=== PATIENT | female | born 1960 | race Caucasian/White ===

== ENCOUNTER 2019-08-19 11:30 | Outpatient (REF) | payer OTHER, SELFPAY ==
--- NOTE | 2019-08-19 11:30 | PAPFT_PTH ---
PATIENT: Mala Wong LOC: [facility] U#:[id number] AGE/SX: 58/F ROOM: RE08/19/[address]: Araseli Kate V : 1960 BED: DIS: 08/19/2019 SPEC #: [id number] RECD: 08/20/19 12:52 STATUS: ELOY REQ #: [id number] LISA: 08/19/19 11:[address]: Araseli Kate V DEPT: [facility] Cytology RECD BY: Pat Salas Tissues: 1 - CX/ENDOCX FOR PAP SMEARS Procedures: PAP THIN PREP/UVM Screening Comments: [id number]
== END 2019-08-19 11:50 ==
LOC: NCHCN 11:30
PROVIDERS: PCP Family Medicine; Visit Provider Family Medicine
DX: Z12.4 Encounter for screening for malignant neoplasm of cervix (principal); Z01.419 Encounter for gynecological examination (general) (routine) without abnormal findings
CPT/HCPCS: 88142

== ENCOUNTER 2019-08-22 01:44 | Outpatient (CLI) | payer OTHER, SELFPAY ==
--- NOTE | 2019-08-22 09:00 | DI.US_ITS ---
EXAM: US ABD PELV TRANSVAG NON-OB CLINICAL HISTORY: ABD PAIN, R10.9, AND LOW PELVIC PAIN,UTERINE PROLAPSE, N81.4 TECHNIQUE: Ultrasound performed using standard protocol. FINDINGS: Abdomen ultrasound: Liver is normal in size and echogenicity. No focal liver lesions or biliary dila tation is seen. The gallbladder is unremarkable, without evidence of stones or wall thickening. The pancreas, spleen, kidneys and aorta are unremarkable. There is no ascites. Pelvic ultrasound: Transabdominal and transvaginal exams were performed. The uterus measures 6.9 x 2 .8 x 4.4 cm. The endometrial stripe measures 3 millimeters in thickness. An 11 millimeter posterior myometrial fibroid is seen. The ovaries are normal in size. There is somewhat limited visualizatio n of the left ovary due to adjacent bowel gas. No free fluid is seen in the cul-de-sac. IMPRESSION: Negative abdomen ultrasound. 11 millimeter fibroid. No acute abnormality.
== END 2019-08-22 02:04 ==
PROVIDERS: PCP Family Medicine; Visit Provider Family Medicine
DX: R10.9 Unspecified abdominal pain (principal); R10.2 Pelvic and perineal pain; D25.9 Leiomyoma of uterus, unspecified; N81.4 Uterovaginal prolapse, unspecified
CPT/HCPCS: 76700; 76830; 76856

== ENCOUNTER 2019-09-19 13:50 | Outpatient (CLI) | payer OTHER, SELFPAY ==
[2019-09-19 15:02] LABS: HGB 14.2 g/dL (12.0-15.5); Mean Corp. HGB Concentration 34.6 g/dL (32.0-36.0); Mean Corpuscular Hemoglobin 32.6 pg (27.0-33.0); Mean Platelet Volume 9.8 fL (8.0-11.0); Platelet Count 278 x1000/uL (130-400); RBC 4.36 m/cumm (4.00-5.20); RBC Distribution Width 12.8 % (11.7-14.6); White Blood Cell Count 7.27 k/cumm (4.4-10.8)
== END 2019-09-19 14:10 ==
PROVIDERS: PCP Family Medicine; Visit Provider Obstetrics & Gynecology
DX: N81.4 Uterovaginal prolapse, unspecified (principal); Z01.818 Encounter for other preprocedural examination; Z01.812 Encounter for preprocedural laboratory examination
CPT/HCPCS: 36415; 85027; 86850; 86900; 86901

== ENCOUNTER 2019-09-24 08:08 | Inpatient (IN) | payer OTHER, SELFPAY ==
[2019-09-24] VITALS (16 sets, daily range): BP systolic 88–121; BP diastolic 43–72; PULSE 54–87; RESP 16–20; TEMP 36.6–36.8; O2SAT 94–99
[2019-09-24] MEDS: Lactated Ringers 1,000 ML 125 ML IV ×4 (08:52→19:44)
[2019-09-24] MEDS: ceFAZolin 2 GM/50 ML BAG IVPB (12:20)
--- NOTE | 2019-09-24 13:12 | UTER_PTH ---
PATIENT: Mala Wong LOC: [facility]BS U#:[id number] AGE/SX: 58/F ROOM: OBS.306 RE09/24/[address]: Sander Mustafa MD : 1960 BED: A DIS: 09/26/2019 SPEC #: [id number] RECD: 09/24/19 18:39 STATUS: ELOY REQ #: [id number] LISA: 09/24/19 13:[address]: Sander Mustafa DEPT: Surgical Specimen RECD BY: Pat Salas ENTERED: 09/24/19 18:42 SP TYPE: UTER OTHR DR: Araseli Kate V Tissues: 1 - UTERUS W OR W/O OVARIES(NOT TUMOR/PROLAPSE) 2 - OVARY NOT TUMOR W OR W/O TUBES 3 - OVARY NOT TUMOR W OR W/O TUBES Procedures: GROSS AND MICRO LEVEL 4 Comments: [id number]
[2019-09-24] MEDS: Bupivacaine 0.25% Pres-Free 30 ML VIAL (14:25)
[2019-09-24] MEDS: Normal Saline 20 ML VIAL (15:02)
[2019-09-24] MEDS: Vasopressin 20 UNITS/ML VIAL (15:02)
--- NOTE | 2019-09-24 18:49 | W.PM.OP ---
Date of service: 09/24/19 Time of Service: 18:50 Operative Note Operative Note DATE OF PROCEDURE: 09/24/19 PRE-OP DIAGNOSIS: Cystocele/rectocele/uterine prolapse POST-OP DIAGNOSIS: same PROCEDURE: 1. TVH converted to LAVH 2. Bilateral salpingo-oophorectomy 3. Anterior colporrhaphy 4. Cystoscopy. SURGEON: Sander Mustafa ASSISTING SURGEON: Kristen Rivera ANESTHESIA: GETA ESTIMATED BLOOD LOSS: 150 PATHOLOGY: other (1. Uterus, tubes and ovaries) COMPLICATIONS: None Patient was transported to: PACU Patient's condition: stable Findings: 1. Grade II Cystocele 2. Uterine prolapse to within 1 cm of introitus. 3. Grade I rectocele Procedure Description: The patient was taken to the operating room and after an adequate level of general anesthesia was obtained the patient was placed in lithotomy position. The patient was prepped and draped in the usual sterile manner. A Abreu catheter was placed in the bladder draining clear urine. A weighted speculum was placed in the vagina. The cervix was well visualized. The cervix was grasped with a single-tooth tenaculum. The paracervical tissues were infiltrated with vasopressin (20 units in 60 cc saline) solution. A circumferential incision was made with a #10 blade scalpel at the cervicovaginal junction. The anterior and posterior planes were developed. The cul-de-sac was entered sharply with Temple scissors. A longbilled weighted speculum was inserted retracting the rectum posteriorly. Dissection was carried anteriorly until the anterior cul-de-sac was entered. The bladder was reflected anteriorly with a right ankle retractor. The uterosacral ligaments were crossclamped bilaterally with Zeppelin clamps. These were transected with Temple scissors and suture ligated in a Lester stitch with 0 Vicryl. Suture tags were held. Two additional pedicles and either side were used to transect and ligate the uterine vessels. Dissection was carried across the utero-ovarian ligaments bilaterally as well. The utero-ovarian ligaments were transected and suture-ligated with 0 Vicryl in a Solitario stitch. The uterus was removed from the abdomen. Excellent hemostasis was noted. The right ovary was identified, was grasped with a [place] clamp in the infundibular pelvic ligament was crossclamped with Zeppelin clamp, transected with Temple scissors and suture ligated with 0 Vicryl in a Solitario stitch. The left tube and ovary were somewhat difficult to access. There was some adhesion on the left side but was able to be grasped with a [place] clamp. The IP ligament was crossclamped with a Zeppelin clamp. The ovary and tube were excised with Temple scissors and the pedicle was suture-ligated with 0 Vicryl Solitario stitch. It was at this point that there was some bleeding noted from the region of the left adnexa. The actual site of bleeding could not be identified and vaginal access was significantly limited. The bleeding was not heavy but significant. The decision was made to close the vaginal cuff and perform a laparoscopy to identify the site of bleeding. The purpose of this procedure the median of the vaginal cuff was closed with interrupted vertical mattress sutures of 0 Vicryl. The uterosacral ligaments were not incorporated yet. Suture tags were held in the vagina was packed with a moist laparotomy sponge. The patient was repositioned. The abdomen was prepped and the patient was redraped. Surgical staff was also regowned and gloved. Attention was then turned to the abdominal portion of this procedure. The skin and subcutaneous tissues at the umbilicus were infiltrated with 0.25% Marcaine solution. A small infraumbilical skin incision was then made with a #15 blade scalpel. Sharp dissection was carried down to the underlying layer fascia. The fascia was grasped and elevated with 2 Natanael clamps and incised sharply with a scalpel. The peritoneum was entered with a hemostat. 2 sutures of 0 Vicryl were used to tag the fascia. A 10 mm balloon trocar was advanced and secured in place. A pneumoperitoneum to approximately 14 mmHg was established. Two 5 mm ports were placed in the right and left lower quadrant under direct visualization. There was some bleeding noted at the site of the left adnexa. Bleeding was not heavy. Due to some difficulty in accessing the site, a fourth 5 mm port was placed in the right upper quadrant also under direct visualization. The site of bleeding appeared to be adjacent to the infundibulopelvic ligament and appeared to be a sign of an adhesion associated with the left tube and ovary. This was cauterized with a LigaSure device. With irrigation was performed and hemostasis was noted. All visualized bowel was noted to be normal in appearance. The vaginal cuff was noted to be to be hemostatic. All other pedicles were also noted to be hemostatic. The abdomen was desufflated and attention was then turned again to the vaginal portion of this procedure. The patient was repositioned. The weighted speculum was replaced. The suture tags from the uterosacral ligaments were incorporated into the vaginal angles with use of a free needle. Vaginal cuff closure was completed with interrupted vertical mattress sutures of 0 Vicryl. Attention was turned to performing the anterior colporrhaphy. The vaginal mucosa overlying the bladder was infiltrated with vasopressin solution. A linear incision was made overlying the bladder. The vaginal mucosa was dissected off the underlying defect and dissection was carried laterally until the defect could be suitably reduced. The defect was reduced with interrupted sutures of 0 Vicryl. The vaginal mucosa was trimmed and reapproximated with interrupted sutures of 0 Vicryl. Excellent hemostasis was noted. The weighted speculum was removed. With adequate suspension of the vaginal vault and hysterectomy the rectocele defect did not appear as prominent and the decision was made to not proceed with posterior colporrhaphy. 5 mL's of indigocarmine was injected intravenously. A 5 mm 30 degree cystoscope with normal saline distention media was advanced into the bladder. There is strong reflux of indigocarmine from the left UO but the right UO did not show reflux. After approximately 20 minutes of wait time, 5 mL's of indigocarmine was readministered followed by 10 mg of IV Lasix. Strong reflux of indigocarmine was noted from the right UO as well. The bladder wall was noted to be intact as well. The vaginal portion of this procedure was concluded. Attention was then returned to the patient's abdomen. The surgeon was regloved. The fascia at the umbilicus was closed with 2 previously placed sutures of 0 Vicryl. Each skin incision was closed with interrupted sutures of 4-0 Monocryl and Dermabond was applied. The procedure was concluded at this point. Sponge, lap and needle counts were correct at the conclusion of the procedure and the patient was transferred to PACU in stable condition.
[2019-09-24] MEDS: guaiFENesin 600 MG TABCR PO (19:43)
[2019-09-25] MEDS: oxyCODONE 5 MG TAB PO ×4 (00:26→18:55)
[2019-09-25] MEDS: Ibuprofen 600 MG TAB PO ×3 (00:26→18:53)
[2019-09-25] MEDS: Acetaminophen 325 MG TAB PO ×4 (00:26→18:53)
[2019-09-25 00:34] VITALS: BP 104/64; PULSE 71; RESP 18; TEMP 36.8
[2019-09-25 05:08] VITALS: BP 96/55; PULSE 59; RESP 18; TEMP 36.9
--- NOTE | 2019-09-25 06:10 | NUR.NOTE ---
Addendum entered by Mely Marx 09/25/19 06:13: Original Note: Nursing Note: awake complaining of perineal pain md notified new orders recieved tylenol motrin and oxycodone po given with some relief
[2019-09-25 07:45] VITALS: BP 116/74; PULSE 65; RESP 24; TEMP 36.8; O2SAT 95
[2019-09-25] MEDS: guaiFENesin 600 MG TABCR PO ×2 (08:09→19:52)
[2019-09-25 12:55] VITALS: BP 141/96; PULSE 67; RESP 20; TEMP 36.4; O2SAT 99
[2019-09-25] MEDS: Normal Saline Flush 10 ML SYR IV ×2 (12:58→14:50)
[2019-09-25] MEDS: Ondansetron 4 MG/2 ML VIAL IVP (14:50)
[2019-09-25 15:23] LABS: Abs Immature Grans 0.02 k/cumm (0.0-0.09); Absolute Basophil Count 0.03 k/cumm (0.0-0.2); Absolute Eosinophil Count 0.11 k/cumm (0.0-0.7); Absolute Lymphocyte Count 2.46 k/cumm (1.2-3.4); Absolute Monocyte Count 0.64 k/cumm (0.11-0.7); Absolute Neutrophil Count 5.77 k/cumm (1.2-6.7); Basophils % 0.3; Eosinophils % 1.2; HCT 35.3 % (36.0-46.0); HGB 11.9 g/dL (12.0-15.5); Immature Grans % 0.2; Lymphocytes % 27.2; Mean Corp. HGB Concentration 33.7 g/dL (32.0-36.0); Mean Corpuscular Hemoglobin 32.4 pg (27.0-33.0); Mean Corpuscular Volume 96.2 fL (80-95); Mean Platelet Volume 9.7 fL (8.0-11.0); Monocytes % 7.1; Platelet Count 220 x1000/uL (130-400); RBC 3.67 m/cumm (4.00-5.20); RBC Distribution Width 12.7 % (11.7-14.6); White Blood Cell Count 9.03 k/cumm (4.4-10.8)
[2019-09-25 15:27] LABS: Anion Gap 6.3 mmol/L (3-11); BUN 15 mg/dL (7-18); CO2 27.7 mmol/L (21.0-32.0); CREATININE 1.05 mg/dL (0.55-1.02); Calcium 8.2 mg/dL (8.5-10.1); Chloride 93 mmol/L (98-107); Estimated GFR 54.02 (mL/min/1.73m2); Glucose 101 mg/dL (74-106); Sodium 127 mmol/L (136-145)
[2019-09-25 15:41] VITALS: BP 105/63; PULSE 79; RESP 18; TEMP 36.8; O2SAT 95
--- NOTE | 2019-09-25 17:11 | W.PM.PROGNOT ---
Date of Service Date of service: 09/25/19 Time of Service: 17:11 Assessment and Plan Assessment and plan (1) Cystocele with uterine prolapse: Status: Acute Assessment and plan: Poor urine output and inability to to void today. A Ruiz catheter was replaced. We will keep the patient an additional night and plan for voiding trial tomorrow morning. She did have a slight elevation of her creatinine to 1.05. We will repeat her labs in the morning. Hemoglobin is stable at 11.9. Subjective Subjective Interval history since last seen: Patient reported low back pain today. This seems to be musculoskeletal. She did have low urine output through the day today. A bladder scan demonstrated a residual of approximately 150 mL's. Despite fluid bolus she did not urinate. A Ruiz catheter was placed yielding approximately 300 mls of urine. Her pain is well controlled but she does report a significant amount of pelvic pressure. Objective Objective Clinical Data: Abnormal lab results 09/25/19 09/25/19 Range/Units 15:11 15:11 RBC 3.67 L (4.00-5.20) m/cumm Hgb 11.9 L (12.0-15.5) g/dL Hct 35.3 L (36.0-46.0) % MCV 96.2 H (80-95) fL Sodium 127 L (136-145) mmol/L Chloride 93 L (98-107) mmol/L Creatinine 1.05 H (0.55-1.02) mg/dL Calcium 8.2 L (8.5-10.1) mg/dL Vital Signs Temperature 98.2 F 09/25/19 15:41 Temperature Source Oral 09/25/19 15:41 Pulse 79 09/25/19 15:41 Pulse Rhythm Regular 09/25/19 15:42 Respiratory Rate 18 09/25/19 15:41 Respiratory Effort 09/25/19 15:42 Respiratory Depth Normal 09/25/19 15:42 Respiratory Pattern Normal 09/25/19 15:42 Blood Pressure 105/63 09/25/19 15:41 Pulse Oximetry 95 09/25/19 15:41 Respiratory End-tidal CO2 26 09/24/19 16:22 Oxygen Delivery Method Room Air 09/25/19 15:41 Oxygen Flow Rate 0 09/25/19 15:41 Pain Level 0 09/25/19 15:41 Comment 09/24/19 17:00 Intake & Output 09/24/19 09/25/19 09/25/19 23:59 11:59 23:59 Intake Total 4080.833 / 4080.833 1358 / 3713 2355 / 3713 Output Total 425 / 425 600 / 825 225 / 825 Balance 3655.833 / 3655.833 758 / 2888 2130 / 2888 Intake: IV 3020.833 / 3020.833 838 / 2253 1415 / 2253 Oral 1060 / 1060 520 / 1460 940 / 1460 Output: Urine 275 / 275 600 / 825 225 / 825 Estimated Blood Loss 150 / 150 Other: Urine Color Indigo Yellow Dark Zeinab Urine Appearance Clear Clear Clear Urine Odor None Normal Comment ruiz cath intact encouraged patient to try to void, turn water on, try to relax avg 136 114, 143, 153 Emesis Description None Laboratory Results WBC 9.03 k/cumm (4.4-10.8) 09/25/19 15:11 RBC 3.67 m/cumm (4.00-5.20) L 09/25/19 15:11 Hgb 11.9 g/dL (12.0-15.5) L 09/25/19 15:11 Hct 35.3 % (36.0-46.0) L 09/25/19 15:11 MCV 96.2 fL (80-95) H 09/25/19 15:11 MCH 32.4 pg (27.0-33.0) 09/25/19 15:11 MCHC 33.7 g/dL (32.0-36.0) 09/25/19 15:11 RDW 12.7 % (11.7-14.6) 09/25/19 15:11 Plt Count 220 x1000/uL (130-400) 09/25/19 15:11 MPV 9.7 fL (8.0-11.0) 09/25/19 15:11 Immature Gran % 0.2 09/25/19 15:11 Neutrophils % 64.0 09/25/19 15:11 Lymphocytes % 27.2 09/25/19 15:11 Monocytes % 7.1 09/25/19 15:11 Eosinophils % 1.2 09/25/19 15:11 Basophils % 0.3 09/25/19 15:11 Absolute Neutrophils 5.77 k/cumm (1.2-6.7) 09/25/19 15:11 Absolute Lymphocytes 2.46 k/cumm (1.2-3.4) 09/25/19 15:11 Absolute Monocytes 0.64 k/cumm (0.11-0.7) 09/25/19 15:11 Absolute Eosinophils 0.11 k/cumm (0.0-0.7) 09/25/19 15:11 Absolute Basophils 0.03 k/cumm (0.0-0.2) 09/25/19 15:11 Sodium 127 mmol/L (136-145) L 09/25/19 15:11 Potassium 4.0 mmol/L (3.5-5.1) 09/25/19 15:11 Chloride 93 mmol/L (98-107) L 09/25/19 15:11 Carbon Dioxide 27.7 mmol/L (21.0-32.0) 09/25/19 15:11 Anion Gap 6.3 mmol/L (3-11) 09/25/19 15:11 BUN 15 mg/dL (7-18) 09/25/19 15:11 Creatinine 1.05 mg/dL (0.55-1.02) H 09/25/19 15:11 Estimated GFR/1.73 m2 54.02 (mL/min/1.73m2) 09/25/19 15:11 Glucose 101 mg/dL (74-106) 09/25/19 15:11 Calcium 8.2 mg/dL (8.5-10.1) L 09/25/19 15:11
[2019-09-25 20:06] VITALS: BP 107/66; PULSE 62; RESP 18; TEMP 36.7; O2SAT 95
[2019-09-25] MEDS: Zolpidem 5 MG TAB 10 MG PO (21:55)
[2019-09-26] VITALS: BP 105/67; PULSE 79; RESP 18; TEMP 36.6; O2SAT 95
[2019-09-26] MEDS: Ibuprofen 600 MG TAB PO (02:36)
[2019-09-26] MEDS: Acetaminophen 325 MG TAB PO ×2 (02:36→08:05)
[2019-09-26] MEDS: oxyCODONE 5 MG TAB PO ×2 (02:38→08:05)
[2019-09-26 06:00] LABS: Anion Gap 7.4 mmol/L (3-11); BUN 12 mg/dL (7-18); CO2 27.6 mmol/L (21.0-32.0); CREATININE 0.82 mg/dL (0.55-1.02); Calcium 8.1 mg/dL (8.5-10.1); Chloride 100 mmol/L (98-107); Glucose 94 mg/dL (74-106); Sodium 135 mmol/L (136-145)
[2019-09-26 07:30] VITALS: BP 102/64; PULSE 60; RESP 16; TEMP 36.6; O2SAT 94
[2019-09-26] MEDS: guaiFENesin 600 MG TABCR PO (08:06)
== END 2019-09-26 11:25 | disposition home or self-care (01) | DRG 742 ==
LOC: PDS 18:58 → OBS 09-25 05:23
PROVIDERS: Admitting Provider Obstetrics & Gynecology; PCP Family Medicine; Visit Provider Obstetrics & Gynecology
PROC: 0UT97ZZ Resection of Uterus, Via Natural or Artificial Opening (ICD-10-PCS; CPT 58260; principal; 2019-09-24 10:00)
PROC: 0UT97ZZ Resection of Uterus, Via Natural or Artificial Opening (ICD-10-PCS; CPT 57260; 2019-09-24 10:00)
DX: N81.2 Incomplete uterovaginal prolapse (principal); N99.61 Intraoperative hemorrhage and hematoma of a genitourinary system organ or structure complicating a genitourinary system procedure; D25.1 Intramural leiomyoma of uterus; D25.2 Subserosal leiomyoma of uterus; N80.0 Endometriosis of uterus; N84.0 Polyp of corpus uteri; F17.210 Nicotine dependence, cigarettes, uncomplicated; Y83.6 Removal of other organ (partial) (total) as the cause of abnormal reaction of the patient, or of later complication, without mention of misadventure at the time of the procedure
CPT/HCPCS: 58262; 49320; 57260; 52000; 36415; 80048; 88305; 99233; 85025; 88307; J0131; J0690; J1100; J2405; J3010

== ENCOUNTER 2023-08-14 19:57 | Outpatient (REF) | payer BC, SELFPAY ==
[2023-08-14 19:37] LABS: Anion Gap 8.5 mmol/L (3-11); BUN 13 mg/dL (7-18); CO2 28.5 mmol/L (21.0-32.0); CREATININE 0.8 mg/dL (0.55-1.02); Calcium 9.6 mg/dL (8.5-10.1); Chloride 96 mmol/L (98-107); Estimated GFR 83.78 (mL/min/1.73m2); Glucose 97 mg/dL (74-106); Sodium 133 mmol/L (136-145)
== END 2023-08-14 19:58 | disposition home or self-care (01) ==
LOC: NCHCN 19:57
PROVIDERS: PCP Family Medicine; Visit Provider Family Medicine
DX: I10 Essential (primary) hypertension (principal); E83.51 Hypocalcemia; Z00.00 Encounter for general adult medical examination without abnormal findings
CPT/HCPCS: 80048

== ENCOUNTER 2024-01-12 19:39 | Emergency (ER) | payer OTHER, SELFPAY ==
--- NOTE | 2024-01-12 19:45 | DI.RAD_ITS ---
Exam(s) XR WRIST RT COMPLETE EXAM: XR WRIST RT COMPLETE CLINICAL HISTORY: foosh, distal radius pain. TECHNIQUE: 2D digital imaging was performed of the right wrist. Three views were obtained. PA, lat eral and oblique views were obtained. COMPARISON: No exams were available for comparison FINDINGS: BONES: There is an acute comminuted intra-articular fracture of the distal right radius. The fractur e is impacted with mild dorsal angulation. There is an acute displaced ulnar styloid process fractur e. No bony destructive lesion is seen. JOINTS: On the lateral view, there is a question of displacement of the pisiform. SOFT TISSUE: Normal. IMPRESSION: 1. Acute fractures involving the distal radius and ulna as described above. 2. Question of displacement of the pisiform on the lateral view. Please correlate clinically. DATA REPOSITORY: RADIATION DOSE DELIVERED:
--- NOTE | 2024-01-12 19:45 | DI.RAD_ITS ---
Exam(s) XR ELBOW RT COMPLETE EXAM: XR ELBOW RT COMPLETE CLINICAL HISTORY: fall, pain at elbow. TECHNIQUE: 2D digital imaging was performed of the left elbow. Three images were obtained. AP, lat eral and oblique views were obtained. COMPARISON: No exams were available for comparison FINDINGS: BONES: No acute fracture is present. No bony destructive lesion is seen. JOINTS: The elbow is normally aligned. No joint effusion is seen. SOFT TISSUE: Normal. IMPRESSION: Unremarkable radiographs of the right elbow. DATA REPOSITORY: RADIATION DOSE DELIVERED:
[2024-01-12 19:50] VITALS: PULSE 87; RESP 16; TEMP 36.4; O2SAT 98
--- NOTE | 2024-01-12 19:52 | ED.GENADUL_ITS ---
Discharge Plan Disposition Patient Disposition: Home Condition: Good Discharge Details Clinical Impression: Contusion, Fall, Closed fracture of right distal radius Primary Care Provider: Araseli Kate V ED Provider: Eladio Marshall Home Meds and New Rx's Prescriptions: No Action lisinopril-hydrochlorothiazide 20-25 mg Tablet 1 tab PO DAILY pantoprazole 40 mg tablet,delayed release (DR/EC) 40 mg PO DAILY Discharge Instructions Instructions: Wrist Fracture in Adults (ED), Contusion in Adults (ED) Additional Instructions: At this time the CT scan of your head shows no evidence of bleed or fracture. Your elbow shows no signs of fracture on the x-ray. Unfortunately you do have a notable fracture in your distal radius in your wrist. You have been splinted. Unfortunately due to the nature of the injury there may need to be potential surgical intervention, however this will have to be determined after the swelling improves on reassessment. Please follow-up closely with the powered bridge specialist. Please take Tylenol Motrin as needed for pain. Please monitor closely for any signs of color change or worsening pain. If it feels like your wrist is in a vice manager compliance, you can slightly loosen up your splint. If you notice any worsening of your symptoms, or any new symptoms such as vomiting, diarrhea, fever, chills, shortness of breath, chest pain, numbness, weakness, or fainting , please return immediately to the emergency department for reevaluation. Please follow up with your primary care provider as soon as possible for reassessment and reevaluation. As always, it was a pleasure participating in your medical care today. Referrals: Araseli Kate MD [Primary Care Provider] - Elia Haywood MD [ [facility] STAFF PHYSICIAN] - Artemio Cross MD [ [facility] STAFF PHYSICIAN] - [facility] General Date/Time Provider Initiated Documentation: 01/12/24 19:41 . [facility] Narrative: 63-year-old female with a past medical history of hypertension, GERD, who presents today after fall. Patient was at work when she tripped on an elevated component of the lyric, she fell and with an outstretched wrist landed on her right dominant wrist, and hit her left head and right knee. She had no loss of consciousness. She recalls the entire event. She came to the ER immediately thereafter. She denies numbness or tingling. She has notable pain in her wrist made worse with movement. Minimal achiness in her left head where she was hit. No pain in her knee. No other complaints at this time. She is not on blood thinners. Related Data Home Medications Medication Instructions Recorded Confirmed lisinopril 20 1 tab PO DAILY 09/19/19 01/12/24 mg-hydrochlorothiazide 25 mg tablet pantoprazole 40 mg tablet,delayed 40 mg PO DAILY 01/12/24 01/12/24 release Allergies Allergy/AdvReac Type Severity Reaction Status Date / Time formaldehyde Allergy Severe Headache Verified 01/12/24 19:49 Isothiazolinones Allergy Severe Headache Verified 01/12/24 19:49 General Stated Complaint: Orthopedic KAIA: 3 Review of Systems All systems reviewed & are unremarkable except as noted in HPI and below Exam Narrative Exam Narrative: 1.Const: Well-nourished, Well-developed, appearing stated age 2.Eyes: PERRL, no conjunctival injection, and symmetrical lids. 3.ENT: Atraumatic external nose and ears. Moist MM. Neck: Symmetric, trachea midline, No thyromegaly. There is no evidence of raccoon eyes, oswald sign, CSF rhinorrhea, mastoid tenderness, cranial crepitus, hemotympanum, exophthalmos, or hyphema. Patient demonstrates intact dentition with no signs of tooth avulsion or fracture, no signs of jaw deformity, no evidence of a LeFort's fracture, with an intact palate, nose and orbital region. There is no evidence of a nasal septal hematoma. No proptosis. Jaw closes symmetrically. Airway is clear. Mild hematoma over the left temporal region. 4.CVS: +S1/S2, No murmurs or gallops. Peripheral pulses 2+ and equal in all extremities. Brisk capillary refill in all extremities. 5.RESP: Unlabored respiratory effort. Clear to auscultation bilaterally. No wheezes rales or rhonchi 6.GI: Soft, Nontender/Nondistended, No hepatosplenomegaly. No guarding or rebound. 7.MSK: Right wrist: Right wrist demonstrates mild deformity at the distal radius, swelling and tenderness there. There is also mild swelling and tenderness over the proximal radius. No tenderness over the olecranon. Normal movement of the elbow and shoulder otherwise. Symmetrically palpable radial and ulnar pulses. Capillary refill less than 2 seconds to all digits. Intact sensation to light touch of the radial, median and ulnar nerves demonstrated by testing in the dorsal web space of the thumb, the distal palmar aspect of the index finger, and the lateral surface of the fifth finger. 2 point discrimination intact to 5mm (up to 6mm can be normal in digits 3-5) of discrimination in the affected digit. Intact motor function of the radial, median and ulnar nerves demonstrated by strength of extension of the isolated distal joint of the index finger, hand manager compliance, and spreading of the 2nd through 5th digits. Intact recurrent median nerve as demonstrated by ability to move thumb fully through opposition, abduction and flexion. No snuffbox tenderness. Right knee demonstrates stability with varus and valgus straining, mild abrasion over the patella. No tenderness over the patella tibia or fibula. No midline cervical thoracic or lumbar spine tenderness. 8.Skin: Warm, Dry. No rashes or lesions. 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 Sensation grossly intact, no focal neurologic deficits. 10.Psych: (AAO) x3. Appropriate mood and affect Course Vital Signs Vital signs: Vital Signs Temperature 36.4 C L 01/12/24 19:50 Pulse 87 01/12/24 19:50 Respiratory Rate 16 01/12/24 19:50 Pulse Oximetry 98 01/12/24 19:50 Temperature 36.4 C L 01/12/24 19:50 Temperature Source Temporal Artery Scan 01/12/24 19:50 Pulse 87 01/12/24 19:50 Respiratory Rate 16 01/12/24 19:50 Blood Pressure Position Sitting 01/12/24 19:50 Pulse Oximetry 98 01/12/24 19:50 Oxygen Delivery Method Room Air 01/12/24 19:50 Oxygen Flow Rate 0 01/12/24 19:50 Pain Level 10 01/12/24 19:50 Medical Decision Making 63-year-old female with a past medical history of hypertension, GERD, who presents today after fall. Patient was at work when she tripped on an elevated component of the lyric, she fell and with an outstretched wrist landed on her right dominant wrist, and hit her left head and right knee. She had no loss of consciousness. She recalls the entire event. She came to the ER immediately thereafter. She denies numbness or tingling. She has notable pain in her wrist made worse with movement. Minimal achiness in her left head where she was hit. No pain in her knee. No other complaints at this time. She is not on blood thinners. Physical exam demonstrates mild deformity to the wrist at the distal radius, mild tenderness over the proximal radius as well. No tenderness in the shoulder. Normal movement sensation and vascular exam for the hand. Knee is stable with no tenderness. No indication for imaging. Mild to moderate hematoma located over the temporal region of the left scalp. No hemotympanums. No midline cervical thoracic or lumbar spine tenderness. No other signs of trauma. Concern for distal radius fracture, as well as cranial versus intracranial injury secondary to location of the trauma. She is not on blood thinners. Will get a CT scan of the brain, will get an x-ray of the wrist, and the elbow, will monitor closely and reassess. 938 CT scan of the head shows no evidence of bleed or other acute abnormality. X- ray negative for the elbow. Right wrist demonstrates comminuted intra-articular fracture at the distal radius with dorsal displacement of fracture fragments and slight impaction. I did try to manipulate the area, and was not able to re- manipulate the fracture pieces. We did splint the wrist, she tolerated this well. We will give a sling for home use as well. I did discuss with her the importance of moving the shoulder to avoid frozen shoulder syndrome. Did discuss instructions to potentially loosen the splint if felt very tight or she demonstrated evidence of vascular changes. With the nature of the patient's fracture, I do feel that outpatient orthopedic follow-up is indicated in this scenario. Will place referral. Discussed red flags for which to return. I have extensively reviewed the treatment plan and discharge instructions with the patient. I have addressed all patient concerns at this time. The patient was made aware of what symptoms to monitor for that would warrant a return to the emergency department. Discussed the plan with the patient, they demonstrate verbal understanding and agreement with our assessment and plan at this time. The documentation in this chart was dictated using [employer] dictation software. Please excuse any dictation errors. FINDINGS: Bones/joints: Normal. Soft tissues: Normal. IMPRESSION: No acute bony abnormality. Thank you for allowing us to participate in the care of your patient. Dictated and Authenticated by: Zachary Restrepo MD 01/12/2024 8:58 PM Eastern Time ([place] & [place]) FINDINGS: Bones/joints: Comminuted intra-articular fracture distal radius with dorsal displacement of fracture fragments and slight impaction. Nondisplaced ulnar styloid avulsion. Osteopenia. On the lateral view there is possible palmar displacement of the pisiform. Soft tissues: Normal. IMPRESSION: 1. Comminuted intra-articular fracture distal radius with dorsal displacement of fracture fragments and slight impaction. 2. Nondisplaced ulnar styloid avulsion. 3. On the lateral view there is possible palmar displacement of the pisiform. Correlate clinically. Thank you for allowing us to participate in the care of your patient. Dictated and Authenticated by: Zachary Restrepo MD 01/12/2024 8:57 PM Eastern Time ([place] & [place]) FINDINGS: Brain: No intracranial hemorrhage. There is global parenchymal volume loss. P eriventricular white matter hypoattenuation is nonspecific but most likely due to small vessel disease. No evidence of acute territorial infarct or cerebral edema. No mass effect or midline shift. Cerebral ventricles: Prominent ventricles likely secondary to volume loss. Paranasal sinuses: Mucous retention cyst right maxillary antrum. Mastoid air cells: Visualized mastoid air cells are well aerated. Bones/joints: Unremarkable. No acute fracture. Soft tissues: Left temporal scalp hematoma. IMPRESSION: No acute intracranial findings. Thank you for allowing us to participate in the care of your patient. Dictated and Authenticated by: Zachary Restrepo MD 01/12/2024 8:52 PM Eastern Time ([place] & [place]) Quality:SDOH Health Related Social Needs: No Data to Display PFSH All Active Problems (Updated 01/12/24 @ 21:30 by Eladio Marshall DO) Closed fracture of right distal radius (Acute) Fall (Acute) Contusion (Acute) S/P laparoscopic assisted vaginal hysterectomy (LAVH) (Acute) Cystocele with uterine prolapse (Acute) Hypertension (Chronic) Cystocele and rectocele with incomplete uterovaginal prolapse (Acute) Medical History History of tobacco use Hypertension Surgical History H/O tubal ligation Family History Other Cancer Social History Smoking/Tobacco Use Status: Current every day Tobacco Type: cigarettes Quit status: not considering quitting Smoking risk assessment performed?: Yes Alcohol Intake: current Alcohol Intake frequency: holidays/special occasions only Alcohol type: wine Drug use: Never Substance use type: does not use Housing: house Seatbelt use: always Do you feel safe at home: Yes Do you feel safe in your relationship?: Yes
[2024-01-12] MEDS: Acetaminophen 500 MG TAB 1000 MG PO (19:57)
--- NOTE | 2024-01-12 20:20 | DI.CT_ITS ---
Exam(s) CT HEAD WO EXAM: CT HEAD WO CLINICAL HISTORY: fall, hit left anabaptism, r/o bleed. TECHNIQUE: Imaging Protocol: Axial computed tomography images with coronal and sagittal reformatted images were created and reviewed COMPARISON: No exams were available for comparison FINDINGS: Ventricles and Extra axial spaces: Normal in size and morphology for the patient's age. Hemorrhage: None. Cerebral parenchyma: There is no evidence of an acute territorial infarct. No mass effect. Midline shift: None. Brainstem/Cerebellum: Normal. Calvarium: Normal. Visualized Paranasal sinuses/Mastoids: There is a mucous retention cyst in the right maxillary sinus. Soft Tissues: There is soft tissue swelling of the scalp overlying the left parietal bone. IMPRESSION: 1. No acute intracranial process. 2. Left temporal scalp hematoma. RADIATION DOSE DELIVERED: Total DLP DATA REPOSITORY: All CT scans at this facility are submitted to the National Radiology Data Registry (NRDR) Dose Index Registry (DIR) with the [employer] (ACR). RADIATION OPTIMIZATION: All CT scans at this facility use at least one of these dose optimization te chniques: automated exposure control; mA and/or kV adjustment per patient size (includes targeted exa ms where dose is matched to clinical indication); or iterative reconstruction.
--- NOTE | 2024-01-12 20:52 | DI.VRAD_ITS ---
PROCEDURE INFORMATION: Exam: CT Head Without Contrast Exam date and time: 01/12/2024 8:15 PM Age: 63 years old Clinical indication: Other: Fall, hit left mu-ism, R/O bleed TECHNIQUE: Imaging protocol: Computed tomography of the head without contrast. COMPARISON: No relevant prior studies available. FINDINGS: Brain: No intracranial hemorrhage. There is global parenchymal volume loss. Periventricular white matter hypoattenuation is nonspecific but most likely due to small vessel disease. No evidence of acute territorial infarct or cerebral edema. No mass effect or midline shift. Cerebral ventricles: Prominent ventricles likely secondary to volume loss. Paranasal sinuses: Mucous retention cyst right maxillary antrum. Mastoid air cells: Visualized mastoid air cells are well aerated. Bones/joints: Unremarkable. No acute fracture. Soft tissues: Left temporal scalp hematoma. IMPRESSION: No acute intracranial findings. Dictated and Authenticated by: Zachary Restrepo MD. Ordering:JE Hendricks MD
--- NOTE | 2024-01-12 20:58 | DI.VRAD_ITS ---
PROCEDURE INFORMATION: Exam: XR Right Wrist Exam date and time: 01/12/2024 8:05 PM Age: 63 years old Clinical indication: Wrist; Right; Patient HX: Foosh, distal radius pain TECHNIQUE: Imaging protocol: Radiologic exam of the right wrist. Views: 3 or more views. COMPARISON: No relevant prior studies available. FINDINGS: Bones/joints: Comminuted intra-articular fracture distal radius with dorsal displacement of fracture fragments and slight impaction. Nondisplaced ulnar styloid avulsion. Osteopenia. On the lateral view there is possible palmar displacement of the pisiform. Soft tissues: Normal. IMPRESSION: 1. Comminuted intra-articular fracture distal radius with dorsal displacement of fracture fragments and slight impaction. 2. Nondisplaced ulnar styloid avulsion. 3. On the lateral view there is possible palmar displacement of the pisiform. Correlate clinically. Dictated and Authenticated by: Zachary Restrepo MD. Ordering:JE Hendricks MD
--- NOTE | 2024-01-12 20:58 | DI.VRAD_ITS ---
PROCEDURE INFORMATION: Exam: XR Right Elbow Exam date and time: 01/12/2024 8:08 PM Age: 63 years old Clinical indication: Right; Patient HX: Fall, pain at elbow TECHNIQUE: Imaging protocol: Radiologic exam of the right elbow. Views: 3 or more views. COMPARISON: CR XR WRIST RT COMPLETE 01/12/2024 8:05 PM FINDINGS: Bones/joints: Normal. Soft tissues: Normal. IMPRESSION: No acute bony abnormality. Dictated and Authenticated by: Zachary Restrepo MD. Ordering:JE Hendricks MD
--- NOTE | 2024-01-12 21:56 | NUR.NOTE ---
simple sling applied to right arm to support splinted extremity, education given, circulation intact without concern, tolerated well, verbalized understanding
== END 2024-01-12 21:57 | disposition home or self-care (01) ==
LOC: ER 21:40
PROVIDERS: Emergency Provider Student in an Organized Health Care Education/Training Program; PCP Family Medicine
DX: S52.571A Other intraarticular fracture of lower end of right radius, initial encounter for closed fracture (principal); S52.611A Displaced fracture of right ulna styloid process, initial encounter for closed fracture; S00.83XA Contusion of other part of head, initial encounter; I10 Essential (primary) hypertension; W01.0XXA Fall on same level from slipping, tripping and stumbling without subsequent striking against object, initial encounter; Y93.01 Activity, walking, marching and hiking; Y92.89 Other specified places as the place of occurrence of the external cause; Y99.0 Civilian activity done for income or pay
CPT/HCPCS: 99284; 70450; 73080; 73110

== ENCOUNTER 2024-01-15 12:43 | Day surgery (SDC) | payer OTHER, SELFPAY ==
--- NOTE | 2024-01-15 07:44 | PDOC.DSDIS_ITS ---
Date of service: 01/15/24 Time of Service: 07:44 Discharge Plan Disposition Patient Disposition: Home Condition: Good Discharge Details Reason For Visit: ORIF (R) Distal Radius Fx Attending Provider: Artemio Cross Primary Care Provider: Araseli Kate V Home Meds and New Rx's Prescriptions: New acetaminophen 500 mg tablet 1,000 mg PO TID Qty: 90 0RF ibuprofen 600 mg tablet 600 mg PO TID PRN (Reason: pain) Qty: 90 0RF oxycodone 5 mg tablet 5 mg PO Q4H MDD 6 tabs PRN (Reason: pain) Qty: 20 0RF Continued lisinopril-hydrochlorothiazide 20-25 mg Tablet 1 tab PO DAILY No Action omeprazole 40 mg capsule,delayed release(DR/EC) 40 mg PO DAILY Patient Comments: Take 1 capsule by mouth once a day ibuprofen [Advil] 200 mg tablet 400 mg PO DIRECTED acetaminophen 325 mg capsule 650 mg PO DIRECTED PRN Discharge Instructions Additional Instructions: Wrist Fracture Fixation Discharge Instructions Activity: You should keep the hand/wrist elevated as much as possible for the first few days. You may use the other fingers as tolerated but avoid trying to do too much too soon. You may perform light activities with the splint in place. Dressing/Cast: Your splint should stay in place at all times. Do NOT get it wet. You may loosen the DAVIE wrap if you feel it is too tight and then rewrap more loosely. Medications: - You should take Tylenol and Ibuprofen for baseline pain control. - You have been prescribed a stronger pain medication, Oxycodone, for breakthrough pain. - You may apply ice over the wrist, just double bag so it doesn't get wet. Follow-up: 10-14 days Referrals: Artemio Cross MD [ [facility] STAFF PHYSICIAN] - Equipment/Supplies: Splint Activity:: Elevate Remove Dressings/Wound Care:: Do Not Remove Shower/Bathe:: Cover Diet:: As Tolerated Discharge Orders Discharge Orders: Discharge Order (Routine); Ordered 01/15/24 Ordered By: Campos Joshi DS: Diagnosis Discharge Diagnosis (1) Fracture of right distal radius: Status: Acute
[2024-01-15 13:07] VITALS: BP 136/64; PULSE 94; RESP 16; TEMP 36.7; O2SAT 96
[2024-01-15] MEDS: Celecoxib 200 MG CAP 400 MG PO (13:14)
[2024-01-15] MEDS: Acetaminophen 500 MG TAB 1000 MG PO (13:14)
[2024-01-15] MEDS: Lactated Ringers 1,000 ML 80 ML IV (13:14)
--- NOTE | 2024-01-15 13:35 | HPE_ITS ---
Assessment and Plan Assessment and plan (1) Fracture of right distal radius: Status: Acute Assessment and plan: Deneen is a 63-year-old eusys-swyh-einxavak female who suffered a fall with a right distal radius fracture. There is a comminuted, intra-articular fracture with notable displacement. Given these characteristics and her being zbmoc-hbnu-ycusmled and only 17 years old, I recommend operative fixation. I discussed the technical details of this case. I reviewed the risk to include bleeding, infection, pain, stiffness, damage to nerves and vessels, damage to muscle and tendons, tendon rupture, malunion, nonunion, hardware prominence, pathak rdware failure, need for repeat procedures. Despite these risk, she elected to proceed. History of Present Illness History of Present Illness Chief Complaint: Right wrist fracture Narrative: Deneen is a 63-year-old female who suffered a mechanical fall over the weekend resulting on a fall to the outstretched hand and a comminuted, intra-articular distal radius fracture on the right side. She was seen in the emergency department and diagnosed with this fracture. A gentle reduction was applied and she was placed into a sugar-tong splint. I discussed this injury with her over the phone. Given the comminution, intra-articular involvement, I recommend proceeding with operative fixation. She denies any elbow or shoulder pain. She denies any numbness or tingling. She is right-hand dominant and had no issues with this hand prior to the fall. She is in her usual state of health with a chronic cough and chronic tobacco dependence. She is interested in quitting. She denies any chest pain or shortness of breath. She denies any palpitations. Review of Systems All systems reviewed & are unremarkable except as noted in HPI and below PFSH All Active Problems Fracture of right distal radius (Acute) Fall (Acute) Contusion (Acute) S/P laparoscopic assisted vaginal hysterectomy (LAVH) (Acute) Cystocele with uterine prolapse (Acute) Hypertension (Chronic) Cystocele and rectocele with incomplete uterovaginal prolapse (Acute) Medical History History of tobacco use Hypertension Surgical History H/O tubal ligation Family History Other Cancer Social History Smoking/Tobacco Use Status: Current every day Tobacco Type: cigarettes Quit status: not considering quitting Smoking risk assessment performed?: Yes Alcohol Intake: current Alcohol Intake frequency: holidays/special occasions only Alcohol type: wine Drug use: Never Substance use type: does not use Housing: house Seatbelt use: always Do you feel safe at home: Yes Do you feel safe in your relationship?: Yes Meds Allergies and Home Medications Allergies Allergy/AdvReac Type Severity Reaction Status Date / Time formaldehyde Allergy Severe Headache Verified 01/15/24 13:05 Isothiazolinones Allergy Severe Headache Verified 01/15/24 13:05 Home Medications Medication Instructions Recorded Confirmed Type lisinopril 20 1 tab PO DAILY 09/19/19 01/15/24 History mg-hydrochlorothiazide 25 mg tablet acetaminophen 325 mg capsule 650 mg PO DIRECTED PRN 01/15/24 01/15/24 History acetaminophen 500 mg tablet 1,000 mg (2 x 500 mg) PO TID #90 01/15/24 Rx tabs ibuprofen 200 mg tablet (Advil) 400 mg PO DIRECTED 01/15/24 01/15/24 History ibuprofen 600 mg tablet 600 mg PO TID PRN pain #90 tabs 01/15/24 Rx omeprazole 40 mg capsule,delayed 40 mg PO DAILY 01/15/24 01/15/24 History release oxycodone 5 mg tablet 5 mg PO Q4H PRN pain #20 tabs 01/15/24 Rx Exam Const General: cooperative, healthy appearing, comfortable and no acute distress Resp Effort & Inspection: normal respiratory effort and able to speak in complete sentences Auscultation: rhonchi (Mild at the bases) and wheezes scattered wheezes Cardio Rate: regular rate Rhythm: regular rhythm Extrem Other: Evaluation of the right upper extremity shows no gross deformity of the fingers. She is in a splint. She endorses full sensation over the median, radial, ulnar nerve. Capillary for less than 2 seconds. She also had an injury to the left index finger. There is a laceration over the palmar aspect. She does report some pain about this area. She reports previous fracture to this finger. There is some discoloration of the tip of the finger. She does have dysesthesias but no true numbness. There is a well-approximated laceration approximate 5 mm in length over the radial aspect of the palmar distal phalanx. Results Imaging Imaging Studies: X-ray of the right wrist shows a comminuted and intra-articular fracture of the distal radius with dorsal displacement. Last Vital Signs Temp 36.7 C 01/15/24 13:07 Pulse 94 H 01/15/24 13:07 Resp 16 01/15/24 13:07 BP 136/64 01/15/24 13:07 Pulse Ox 96 01/15/24 13:07
[2024-01-15 13:48] VITALS: BP 146/65; PULSE 95; RESP 21; TEMP 36.4; O2SAT 94
--- NOTE | 2024-01-15 14:00 | DI.RAD_ITS ---
Exam(s) XR WRIST RT LIMITED EXAM: XR WRIST RT LIMITED CLINICAL HISTORY: Fracture of right distal radius TECHNIQUE: 2D and realtime digital imaging was performed. CONTRAST MATERIAL: Refer to procedure report. COMPARISON: CR,XR XR WRIST RT COMPLETE from 01/12/2024 FINDINGS: Fluoroscopy was provided for Dr. Cross during the performance of a reduction and internal fixatio n of the distal radial fracture. Please refer to the procedure report for complete details. Ka,r=0.43 mGy IMPRESSION: RADIATION DOSE DELIVERED: 0.0 0.0 0
--- NOTE | 2024-01-15 14:16 | W.ANESPRE ---
General Info Date of Service Date Performed: 01/15/24 Height: 5 ft 3 in Weight: 81.647 kg Body Mass Index (BMI): 31.8 Surgical Procedure: Operation Date: 01/15/24 15:10 Proposed Procedure Side Surgeon p Wrist ORIF Distal Radius Right Artemio Cross MD Pre-Op Diagnosis Post-Op Diagnosis Fracture of right distal radius Meds Allergies and Home Medications Allergies Allergy/AdvReac Type Severity Reaction Status Date / Time formaldehyde Allergy Severe Headache Verified 01/15/24 13:05 Isothiazolinones Allergy Severe Headache Verified 01/15/24 13:05 Home Medication Medication Instructions Recorded lisinopril 20 1 tab PO DAILY 09/19/19 mg-hydrochlorothiazide 25 mg tablet acetaminophen 325 mg capsule 650 mg PO DIRECTED PRN 01/15/24 acetaminophen 500 mg tablet 1,000 mg (2 x 500 mg) PO TID #90 01/15/24 tabs ibuprofen 200 mg tablet (Advil) 400 mg PO DIRECTED 01/15/24 ibuprofen 600 mg tablet 600 mg PO TID PRN pain #90 tabs 01/15/24 omeprazole 40 mg capsule,delayed 40 mg PO DAILY 01/15/24 release oxycodone 5 mg tablet 5 mg PO Q4H PRN pain #20 tabs 01/15/24 Current Visit Medications: Current Medications Generic Name Dose Route Start Last Admin Trade Name Freq PRN Reason Stop Dose Admin Acetaminophen 650 mg 01/15/24 07:44 Acetaminophen 325 Mg Tab PO 02/14/24 07:43 Q4H PRN PRN Acetaminophen 1,000 mg 01/15/24 12:55 01/15/24 13:14 Acetaminophen 500 Mg Tab PO 02/14/24 12:54 1,000 mg PREOP LEANDRO Administration Celecoxib 400 mg 01/15/24 12:55 01/15/24 13:14 Celecoxib 200 Mg Cap PO 02/14/24 12:54 400 mg PREOP LEANDRO Administration Ringer's Solution 1,000 mls @ 80 mls/hr 01/15/24 06:00 01/15/24 13:14 IV 01/15/24 23:59 80 mls/hr INFUSION LEANDRO Administration Cefazolin Sodium/Dextrose 2 gm in 50 mls @ 100 mls/hr 01/15/24 06:00 Ancef Duplex IVPB 01/15/24 23:59 PREOP LEANDRO IV Miscellaneous Supplies 1 each 01/15/24 06:00 Iv Access IV 01/15/24 23:59 DIRECTED LEANDRO Oxycodone HCl 5 mg 01/15/24 07:44 Oxycodone 5 Mg Tab PO 02/14/24 07:43 Q3H PRN PRN Pain Sodium Chloride 0 ml 01/15/24 06:00 Normal Saline Flush 10 Ml Syr IV 01/15/24 23:59 PRN PRN Sodium Chloride 0 ml 01/15/24 06:00 Normal Saline 10 Ml Vial IJ 01/15/24 23:59 DIRECTED PRN Sterile Water 0 ml 01/15/24 06:00 Water,Injection,Sterile 10 Ml Vial IJ 01/15/24 23:59 DIRECTED PRN PFSH Active Problems Active Problems: Problem Status Onset Code Fracture of right distal radius S52.501A Fall W19.XXXA Contusion T14.8XXA S/P laparoscopic assisted vaginal hysterectomy (LAVH) Z90.710 Cystocele with uterine prolapse N81.4 Hypertension I10 Cystocele and rectocele with incomplete uterovaginal prolapse N81.2 Medical History Medical History History of tobacco use Hypertension Surgical History Surgical History H/O tubal ligation Tobacco Smoking/Tobacco Use Status: Current every day Tobacco Type: cigarettes Alcohol Alcohol Intake: current Alcohol intake frequency: holidays/special occasions only Alcohol type: wine Substance Use Substance use: Never Substance use type: does not use Vital Signs and Lab Results Vital Signs Most Recent Vital Signs in EMR: Most Recent Vital Signs Temp Pulse Resp BP Pulse Ox 36.4 C L 95 H 21 146/65 H 94 01/15/24 13:48 01/15/24 13:48 01/15/24 13:48 01/15/24 13:48 01/15/24 13:48 Lab Results Blood Type / Crossmatch: No Data to Display Complete Blood Count: No Data to Display Complete Metabolic Panel: No Data to Display Liver Function Panel: No Data to Display Coagulation Panel: No Data to Display Cardiac Panel: No Data to Display Arterial Blood Gas: No Data to Display Venous Blood Gas: No Data to Display Pancreas Panel: No Data to Display Thyroid Panel: No Data to Display Infectious Disease: No Data to Display Blood Cultures: No Data to Display Toxicology Panel: No Data to Display Anesthesia Assessment and Plan Anesthesia History Personal History: No History of Anesthesia Complications Family History: No Family History of Anesthesia Complications Exercise Tolerance Exercise Tolerance: Metabolic Equivalents>4 Pertinent Negatives Pertinent Negatives: No Symptoms of GERD, No Major Cardiovascular Symptoms or Complaints, No Major Pulmonary Symptoms or Complaints and No History of CVA/TIA Cardiac & Pulmonary Exam Cardiac Exam: Normal S1/S2 Heart Sounds Pulmonary Exam: Clear Bilateral Breath Sounds (dim bilaterally ) Implantable Cardiac Device Does patient have a Pacemaker or an ICD?: No Airway Exam Known Difficult Airway: No Mallampati Class: 2 Mouth Opening: Normal (> 3cm) Thyromental Distance: Less than 3 cm Neck Range of Motion: Full ROM Neck Circumference: Normal Teeth Condition: Removable Dentures/Plates Upper and Removable Dentures/Plates Lower ASA Classification ASA Score: ASA 2 Emergency Case?: No NPO Status NPO Status: NPO Clears >2 hours, Solids >8 hours Anesthesia Plan Resuscitation Status: Full Code Anesthesia Technique: Primary Nerve Block Airway Planned: Natural Airway Pain Management: Surgeon and patient request nerve block Monitors Used: Standard Monitors
--- NOTE | 2024-01-15 14:21 | W.ANESNERVE ---
Nerve Block Single Injection Procedure Date and Time Date Performed: 01/15/24 Procedure Start: 13:42 Location Where Procedure Performed Procedure Location: Day Surgery Unit Reason Performed: Postoperative Analgesia Requesting Provider: Artemio Cross Timeout Performed Timeout Performed: Yes Monitoring Used ECG, Blood Pressure, SpO2, ETCO2 and See EMR for corresponding vital signs Sterility Sterility: Hand Hygiene, Surgical Cap, Surgical Mask, Sterile Gloves and Sterile Drape/Sheet Sedation Given During Procedure Sedation Given (Indicate Dose Given): Versed IV Dose:: 2mg Patient Mental Status Patient Mental Status: Sedate with meaningful communication Nerve Block 1st Nerve Block: Laterality: Right Block Type: Axillary Ultrasound Image Saved?: Yes Needle / Catheter Used: 100mm SonoPlex II Local Anesthetic Bolus (Indicate Dose Given): Lidocaine used for local infiltration of skin, Injected in 3-5ml increments after negative blood aspiration and Bupivacaine 0.5% Dose:: 16 Additives (Indicate Dose Given): None Ultrasound: Sterile probe cover and gel used Nerve Stimulator: Not Used Paresthesia: None Procedure Tolerated: No Complications and Patient tolerated well Procedure Outcome: Successful Performed By: Yessenia Myers Supervised By: Jerry Sanderson
--- NOTE | 2024-01-15 14:43 | NUR.NOTE ---
1430: Report from Kayla Ortega RN. Pt. resting on stretcher, eyes closed. O2 sat on monitor, 89%, nursing in room to apply O2. Jerry Jones CRNA, in room to assess block and aware of pt's O2 sat and that O2 1L being applied. 1442: Pt. lying on stretcher, coughing occasionally, eyes closed. Vitals taken: 36.4, 85, 16, 112/68, 94%. Pt. denies pain or nausea. Call encarnacion within reach.Nursing Note:
[2024-01-15 14:55] VITALS: BMI 31.8
[2024-01-15] MEDS: ceFAZolin 2 GM/50 ML BAG IVPB (15:35)
[2024-01-15 16:35] VITALS: BP 145/71; PULSE 82; RESP 16; TEMP 36.2; O2SAT 93
[2024-01-15 16:55] VITALS: BP 128/63; PULSE 89; RESP 16; TEMP 36.3; O2SAT 94
--- NOTE | 2024-01-15 16:55 | W.ANESPOSTOP ---
Postoperative Evaluation Date, Time and Location Date Performed: 01/15/24 Time Performed: 16:55 Patient Location: Day Surgery Unit Vital Signs Most Recent Imported Vital Signs: Most Recent Vital Signs Temp Pulse Resp BP Pulse Ox 36.4 C L 95 H 21 146/65 H 94 01/15/24 13:48 01/15/24 13:48 01/15/24 13:48 01/15/24 13:48 01/15/24 13:48 Pain Score Most Recent Pain Score: Most Recent Pain Score Pain Level 2 01/15/24 13:48 Assessment Mental Status: Awake (Alert & Oriented to Patient Baseline) Airway and Respiratory Function: Patent airway with normal (patient baseline) respiratory exam Cardiovascular Function: Hemodynamically Stable Hydration Status: Adequately Hydrated Nausea & Vomiting: No Nausea or Vomiting Pain: Pt. Denies Any Pain Peripheral Nerve Block: Regional nerve block not resolved at time of post operative discharge (Partial coverage)
[2024-01-15] MEDS: oxyCODONE 5 MG TAB PO (16:56)
--- NOTE | 2024-01-15 17:07 | W.PM.OP ---
Date of service: 01/15/24 Time of Service: 15:30 Operative Note Operative Note DATE OF PROCEDURE: 01/15/24 PRE-OP DIAGNOSIS: Right Distal Radius Fracture -intra-articular POST-OP DIAGNOSIS: same PROCEDURE: Open Reduction and Internal Fixation of Right Distal Radius, 3 epiphyseal fragments SURGEON: Artemio Cross COSTUME TECHNICIAN: Kristen Rivera ANESTHESIA TYPE: General LMA/ETT and Primary Nerve Block Refer to Anesthesia Record ESTIMATED BLOOD LOSS: 50 PATHOLOGY: none sent COMPLICATIONS: None Patient was transported to: same day Patient's condition: stable Indications: Mala is a 63-year-old [id number] female who I have seen for a distal radius fracture. Given the deformity, displacement, fracture pattern, and effect on daily function, I recommended surgical fixation. I reviewed the risk of the procedure to include bleeding, infection co-pay, stiffness, damage to nerves and vessels, damage to muscles and tendons, malunion, nonunion, hardware prominence, tendon rupture, need for repeat procedures. Despite these risks, the patient elected to proceed. Findings: There is a distal radius fracture which had 3 epiphyseal fragments. It was reduced and fixed with a Synthes volar locking plate. Procedure Description: Mala was greeted in the preoperative holding area. The correct patient and site was confirmed and marked. The history and physical was updated. The consent was reviewed the patient and signed. An axillary block was administered in the day surgery unit. The patient was taken to the operating room and placed in the supine position. All bony problems were well-padded. The right arm was placed onto a radiolucent hand table. A nonsterile tourniquet was placed high up on the arm. Prophylactic antibiotics in the form of cefazolin were administered. The left arm was prepped with ChloraPrep and draped in a standard fashion. A timeout was performed for safe surgery. A standard longitudinal incision was made overlying the flexor carpi radialis tendon starting at the distal wrist crease and moving proximally. The skin was incised sharply. The flexor carpi radialis tendon and its sheath is identified. The sheath was opened. The tendon was moved ulnarly in the floor of the sheath was incised. Blunt dissection the flexor pollicis longus muscle belly and tendon were also made radially exposing the pronator quadratus and the distal radius. The pronater quadratus was elevated with an ulnar-based flap. This exposed the volar distal radius and the fracture. A cowan elevator was used for full exposure of the volar surface of the distal radius. The primary fracture line was exposed. Using a series of elevators, curettes, and knife, the fracture was fully debrided of any fibrous tissue and callus formation. I used a freer elevator to help mobilize the fragments. The coronal type split of the epiphysis was functioning as 1 unit. The radial styloid segment was more unstable. With the distal radial epiphyseal segment compressed and reduced and gross alignment I used a freer elevator to elevate the radial styloid component along with traction on the thumb to hold this in appropriate position. A K wire was advanced from the radial styloid into the shaft of the radius which largely held the radial styloid component in position to the distal radial epiphysis and the shaft. This seemed to recreate the height of the radial styloid appropriately. With the distal block of the radius seemingly reduced I proceeded with fixation utilizing a technique to fix the plate to the distal segment and then reduce this to the shaft. An appropriately sized Synthes volar locking plate was then placed onto the bony surface of the distal radius. Was then held there with a distal radius clamp sandwiching the plate to the distal segment. A single K wire was placed through the distal end. Fluoroscopy was once again used to confirm appropriate positioning of the plate on the distal radius. A reduction K wire was placed into the slotted hole on the shaft but not tightened all the way to allow for manipulation of the distal segment onto the proximal shaft. A single nonlocking screw was placed to the distal portion of the plate securing the plate against the bone of the distal radial metaphysis. Once again, the plate was evaluated to make sure it was aligned appropriately. The single screw was also checked to make sure it was in appropriate positioning for trajectory of future screws. The remainder of the screws within the volar locking plate were filled with locking screws. These were made sure not to penetrate the dorsal cortex. The K wire within the radial styloid was removed. The proximal portion of the plate was further reduced down onto the shaft, which further reduce the distal segment. This was held in position with a tightened reduction K wire. Fluoroscopy was then used against confirm appropriate reduction. Nonlocking screws were placed within the 3 shaft screw holes. Final x-rays were obtained which demonstrated adequate reduction and positioning of hardware. The wound was then thoroughly irrigated. The pronator quadratus was reapproximated with a 0 Vicryl although not able to be fully repaired. No tourniquet was utilized during the case. The fingers were warm and well-perfused. The deep dermal layer was closed with a 2-0 Vicryl. The skin was closed with a running 4-0 Monocryl in a subcuticular fashion. The wound was dressed with Xeroform, 4 x 4's, web roll. A short arm splint was applied. At the end the case all counts are correct. Patient was transferred back to the DSU in stable condition.
[2024-01-15 17:37] VITALS: BP 119/54; PULSE 89; RESP 18; TEMP 36.4; O2SAT 95
== END 2024-01-15 18:10 | disposition home or self-care (01) ==
LOC: SUR 12:44
PROVIDERS: PCP Family Medicine; Visit Provider Student in an Organized Health Care Education/Training Program
PROC: (CPT 25609; principal; 2024-01-15 15:00)
DX: S52.501A Unspecified fracture of the lower end of right radius, initial encounter for closed fracture (principal); W19.XXXA Unspecified fall, initial encounter; I10 Essential (primary) hypertension
CPT/HCPCS: 25609; 76000; 76942; 73100; J0665; J0690; J1100; J2001; J2250; J2371; J2405; J2704; J3010

== ENCOUNTER 2024-01-28 15:44 | Outpatient (CLI) | payer OTHER, SELFPAY ==
--- NOTE | 2024-01-28 13:30 | DI.RAD_ITS ---
Exam(s) XR WRIST RT LIMITED EXAM: XR WRIST RT LIMITED INDICATION: S/P ORIF R WRIST. COMPARISON: CR,XR XR WRIST RT COMPLETE from 01/12/2024 CR XR WRIST RT LIMITED from 01/15/2024 TECHNIQUE: 2D digital imaging was performed. Two views. FINDINGS: A volar fixation plate is again noted along distal radius for fracture fixation. There has been no c hange in fracture alignment. No new abnormalities. DATA REPOSITORY: RADIATION DOSE DELIVERED:
== END 2024-01-28 15:45 | disposition home or self-care (01) ==
LOC: DIORS 15:44
PROVIDERS: PCP Family Medicine; Visit Provider Student in an Organized Health Care Education/Training Program
DX: S52.571D Other intraarticular fracture of lower end of right radius, subsequent encounter for closed fracture with routine healing (principal); X58.XXXD Exposure to other specified factors, subsequent encounter
CPT/HCPCS: 73100

== ENCOUNTER 2024-02-28 13:28 | Outpatient (CLI) | payer OTHER, SELFPAY ==
--- NOTE | 2024-02-28 13:18 | DI.RAD_ITS ---
Exam(s) XR WRIST RT LIMITED EXAM: XR WRIST RT LIMITED CLINICAL HISTORY: f/u R DISTAL RAD FX. TECHNIQUE: 2D digital imaging was performed. COMPARISON: CR XR WRIST RT LIMITED from 01/28/2024 FINDINGS: Two views-AP and lateral. Again noted is a volar fixation plate across the healing fracture site in the distal radius. There h as been further healing of the fracture line is less evident on the present study. No hardware loose omari nor evidence of osteomyelitis. Fractured ulnar styloid process appears unchanged. Scaphoid and scapholunate distance unremarkable. IMPRESSION: Improved appearance with further healing at the distal radial fracture site when compared to 01/28/20. No hardware abnormality evident. DATA REPOSITORY: RADIATION DOSE DELIVERED:
== END 2024-02-28 13:29 | disposition home or self-care (01) ==
LOC: DIORS 13:30
PROVIDERS: PCP Family Medicine; Referring Provider Family Medicine; Visit Provider Physician Assistant
DX: S52.571D Other intraarticular fracture of lower end of right radius, subsequent encounter for closed fracture with routine healing (principal); S52.611D Displaced fracture of right ulna styloid process, subsequent encounter for closed fracture with routine healing; X58.XXXD Exposure to other specified factors, subsequent encounter
CPT/HCPCS: 73100

== ENCOUNTER 2024-04-03 14:36 | Outpatient (CLI) | payer OTHER, SELFPAY ==
--- NOTE | 2024-04-03 14:00 | DI.RAD_ITS ---
Exam(s) XR WRIST RT COMPLETE EXAM: XR WRIST RT COMPLETE INDICATION: F/U FRACTURE. COMPARISON: CR XR WRIST RT LIMITED from 01/28/2024 CR XR WRIST RT LIMITED from 02/28/2024 TECHNIQUE: 2D digital imaging was performed. Two views. FINDINGS: The fixation plate is again noted along aspect of the distal radius. The fracture is only faintly vi sible. No new abnormalities are seen. The bones appear osteopenic from disuse. DATA REPOSITORY: RADIATION DOSE DELIVERED:
== END 2024-04-03 14:37 | disposition home or self-care (01) ==
LOC: DIORS 14:38
PROVIDERS: PCP Family Medicine; Visit Provider Student in an Organized Health Care Education/Training Program
DX: S52.611D Displaced fracture of right ulna styloid process, subsequent encounter for closed fracture with routine healing (principal); X58.XXXD Exposure to other specified factors, subsequent encounter
CPT/HCPCS: 73110

== ENCOUNTER 2024-07-03 15:19 | Outpatient (CLI) | payer OTHER, SELFPAY ==
--- NOTE | 2024-07-03 13:15 | DI.RAD_ITS ---
Exam(s) XR WRIST RT LIMITED EXAM: XR WRIST RT LIMITED INDICATION: fracture follow up. COMPARISON: CR XR WRIST RT COMPLETE from 04/03/2024 TECHNIQUE: 2D digital imaging was performed. Two views. FINDINGS: Fixation plate again noted along the volar aspect of the distal radius. Continued fracture healing. No change in fracture alignment. No new abnormalities. DATA REPOSITORY: RADIATION DOSE DELIVERED:
== END 2024-07-03 15:20 | disposition home or self-care (01) ==
LOC: DIORS 15:19
PROVIDERS: PCP Family Medicine; Visit Provider Physician Assistant
DX: S52.501A Unspecified fracture of the lower end of right radius, initial encounter for closed fracture (principal)
CPT/HCPCS: 73100